=== PATIENT | female | born 1970 | race Caucasian/White ===

== ENCOUNTER 2017-08-10 18:15 | Emergency (ER) | payer OTHER ==
[2017-08-10 18:20] VITALS: BP 139/88; PULSE 97; TEMP 98.2; BMI 25.2
--- NOTE | 2017-08-10 18:58 | PDOC ---
History of Present Illness - General Chief Complaint: Pain Stated Complaint: STOMACH PAIN Time Seen by Provider: 08/10/17 18:58 Past History - Past Medical History Allergies/Adverse Reactions: Allergies Allergy/AdvReac Type Severity Reaction Status Date / Time aspirin AdvReac Intermediate Difficulty Verified 08/10/17 18:20 Breathing Home Medications: Ambulatory Orders Enalapril Maleate [Vasotec] 5 mg PO DAILY 03/07/11 Glipizide Xl [Glucotrol-Xl] 5 mg PO DAILY 03/07/11 Albuterol Sulfate Inhaler - [Ventolin Hfa *Inhaler*] 1 - 2 inh IH PRN PRN Docusate Sodium [Colace] 100 mg PO TID 09/29/11 Hydrocodone Bit/Acetaminophen [Vicodin 5-500 Tablet] 1 combo PO PRN PRN Hydrocodone Bit/Acetaminophen [Vicodin 5-500 Tablet] 1 combo PO Q4H #20 tab 28/02 Montelukast Na [Singulair] 10 mg PO DAILY 09/29/11 Ondansetron [Zofran] 4 mg PO DAILY 09/29/11 Polyethylene Glycol 3350 1 gm MC DAILY 09/29/11 Asthma: Yes COPD: No Diabetes: Yes HTN: Yes Hypercholesterolemia: Yes - Suicide/Smoking/Psychosocial Hx Smoking Status: No Smoking History: Never smoked Number of Cigarettes Smoked Daily: 0 Cigars Per Day: 0 *Physical Exam - Vital Signs Last Vital Signs Temp Pulse Resp BP Pulse Ox 98.2 F 97 H 18 139/88 99 08/10/17 18:18 08/10/17 18:18 08/10/17 18:18 08/10/17 18:18 08/10/17 18:18
[2017-08-10 19:39] LABS: BASO % 0.4 % (0-2.0); EOS % 1.7 % (0-4.5); HEMATOCRIT 40.2 % (32.4-45.2); HEMOGLOBIN 12.9 GM/dL (10.7-15.3); LYMPH % 42.2 % (8-40); MCH 25.1 pg (25.7-33.7); MCHC 32.2 g/dl (32.0-36.0); MEAN CELL VOLUME 77.8 fl (80-96); MEAN PLT VOLUME 7.9 fl (7.5-11.1); MONO % 7.4 % (3.8-10.2); NEUT % 48.3 % (42.8-82.8); PLATELET COUNT 321 K/MM3 (134-434); RBC 5.16 M/mm3 (3.60-5.2); RDW 13.9 % (11.6-15.6); WHITE BLOOD COUNT 5.9 K/mm3 (4.0-10.0)
[2017-08-10 19:40] LABS: URINE APPEARANCE CLEAR; URINE BILIRUBIN NEGATIVE (<2.0 mg/dL); URINE BLOOD NEGATIVE (NEGATIVE); URINE COLOR STRAW; URINE GLUCOSE (UA) 3+ (NEGATIVE); URINE KETONE NEGATIVE (NEGATIVE); URINE LEUK ESTERASE NEGATIVE (NEGATIVE); URINE NITRITE NEGATIVE (NEGATIVE); URINE PROTEIN NEGATIVE (NEGATIVE); URINE UROBILINOGEN NEGATIVE mg/dL (0.2-1.0)
[2017-08-10 19:59] LABS: HCG,QUALITATIVE URINE NEGATIVE
--- NOTE | 2017-08-10 20:22 | PDOC ---
History of Present Illness - General Chief Complaint: Pain Stated Complaint: STOMACH PAIN Time Seen by Provider: 08/10/17 18:58 History Source: Patient Exam Limitations: No Limitations - History of Present Illness Initial Comments: 08/10/17 21:15 Best Contact: PCP: Joyce Rowland Pmhx: Asthma, NIDDM Pshx: Total abdominal hysterectomy in 2010: Left breast biopsy 2001 Allergies:NKDA FH:None Social Hx: Cigarettes/ 0 Alcohol/ 0 Drugs/0 LMP:07/31/2017 46-year-old female presents to the emergency department complaining of epigastric pain with nausea and vomiting since yesterday. Patient states she had 2 bouts of vomiting episodes which were nonbloody and nonbilious. Patient denies fever, chills headache, dizziness, lightheadedness, neck pain/stiffness, back pain, chest pain, lower abdominal pain, urinary symptoms: Frequency/urgency /hesitancy, hematuria, flank pains There are no exacerbating or alleviating factors. Timing/Duration: momentarily Past History - Past Medical History Allergies/Adverse Reactions: Allergies Allergy/AdvReac Type Severity Reaction Status Date / Time aspirin AdvReac Intermediate Difficulty Verified 08/10/17 18:20 Breathing Home Medications: Ambulatory Orders Enalapril Maleate [Vasotec] 5 mg PO DAILY 03/07/11 Glipizide Xl [Glucotrol-Xl] 5 mg PO DAILY 03/07/11 Albuterol Sulfate Inhaler - [Ventolin Hfa *Inhaler*] 1 - 2 inh IH PRN PRN Asthma: Yes COPD: No Diabetes: Yes HTN: Yes Hypercholesterolemia: Yes - Suicide/Smoking/Psychosocial Hx Smoking Status: No Smoking History: Never smoked Number of Cigarettes Smoked Daily: 0 Cigars Per Day: 0 Review of Systems - Review of Systems Able to Perform ROS?: Yes Comments:: 08/10/17 21:20 CONSTITUTIONAL: Absent: fever, chills, diaphoresis, generalized weakness, malaise, loss of appetite HEENT: Absent: rhinorrhea, nasal congestion, throat pain, throat swelling, difficulty swallowing, mouth swelling, ear pain, eye pain, visual Changes CARDIOVASCULAR: Absent: chest pain, loss of consciousness, palpitations, irregular heart rate, peripheral edema RESPIRATORY: Absent: cough, shortness of breath, dyspnea with exertion, orthopnea, wheezing, stridor, hemoptysis GASTROINTESTINAL: +epigastric pain, nausea, vomiting Absent: abdominal distension, diarrhea, constipation, melena, hematochezia GENITOURINARY: Absent: dysuria, frequency, urgency, hesitancy, hematuria, flank pain, genital pain MUSCULOSKELETAL: Absent: myalgia, arthralgia, joint swelling SKIN: Absent: rash, itching, pallor HEMATOLOGIC/IMMUNOLOGIC: Absent: easy bleeding, easy bruising, lymphadenopathy, frequent infections ENDOCRINE: Absent: unexplained weight gain, unexplained weight loss, heat intolerance, cold intolerance NEUROLOGIC: Absent: headache, focal weakness or paresthesias, dizziness, unsteady gait, seizure, mental status changes, bladder or bowel incontinence PSYCHIATRIC: Absent: anxiety, depression, suicidal or homicidal ideation, hallucinations. Is the patient limited [place] proficient: No *Physical Exam - Vital Signs Last Vital Signs Temp Pulse Resp BP Pulse Ox 98.2 F 97 H 18 139/88 99 08/10/17 18:18 08/10/17 18:18 08/10/17 18:18 08/10/17 18:18 08/10/17 18:18 - Physical Exam Comments: 08/10/17 21:21 GENERAL: Well developed, well nourished. Awake and alert. No acute distress. HEENT: Normocephalic, atraumatic. PERRLA, EOMI. No conjunctival pallor. Sclera are non- icteric. Moist mucous membranes. Oropharynx is clear. NECK: Supple. Full ROM. No JVD. Carotid pulses 2+ and symmetric, without bruits. No thyromegaly. No lymphadenopathy. CARDIOVASCULAR: Regular rate and rhythm. No murmurs, rubs, or gallops. Distal pulses are 2+ and symmetric. PULMONARY: No evidence of respiratory distress. Lungs clear to auscultation bilaterally. No wheezing, rales or rhonchi. ABDOMINAL: +epigastric pain on deep palp Soft. Non-distended. No rebound or guarding. No organomegaly. Normoactive bowel sounds. MUSCULOSKELETAL Normal range of motion at all joints. No bony deformities or tenderness. No CVA tenderness. EXTREMITIES: No cyanosis. No clubbing. No edema. No calf tenderness. SKIN: Warm and dry. Normal capillary refill. No rashes. No jaundice. NEUROLOGICAL: Alert, awake, appropriate. Cranial nerves 2-12 intact. No deficits to light touch and temperature in face, upper extremities and lower extremities. No motor deficits in the in face, upper extremities and lower extremities. Normoreflexic in the upper and lower extremities. Normal speech. Toes are down- going bilaterally. Gait is normal without ataxia. PSYCHIATRIC: Cooperative. Good eye contact. Appropriate mood and affect. Heart Score/ECG Review - History History: Slightly suspicious - Electrocardiogram EKG: Normal - Age Age: >/= 65 - Risk Factors Risk Factors Heart Score: Yes Hx Hypertension, Yes Hx Diabetes Based on the list above the patient has:: 1-2 risk factors - Troponin Troponin: </= normal limit - Score Heart Score - Total: 3 ED Treatment Course - LABORATORY CBC & Chemistry Diagram: 08/10/17 19:15 08/10/17 19:15 - ADDITIONAL ORDERS Additional order review: Laboratory Results 08/10/17 19:15 Urine Color Straw Urine Appearance Clear Urine pH 7.0 D Ur Specific [place] 1.009 Urine Protein Negative Urine Glucose (UA) 3+ H Urine Ketones Negative Urine Blood Negative Urine Nitrite Negative Urine Bilirubin Negative Urine Urobilinogen Negative Ur Leukocyte Esterase Negative Urine HCG, Qual Negative 08/10/17 19:15 RBC 5.16 MCV 77.8 L MCHC 32.2 RDW 13.9 MPV 7.9 Neutrophils % 48.3 D Lymphocytes % 42.2 H D Monocytes % 7.4 Eosinophils % 1.7 Basophils % 0.4 *DC/Admit/Observation/Transfer Diagnosis at time of Disposition: Abdominal pain Qualifiers: Abdominal location: epigastric Qualified Code(s): R10.13 - Epigastric pain - Discharge Dispostion Disposition: HOME Condition at time of disposition: Stable Decision to Admit order: No - Referrals Referrals: Demond Mccullough MD [Primary Care Provider] - Shane Quinn MD [Staff Physician] - - Patient Instructions Printed Discharge Instructions: DI for Abdominal Pain-Adult Additional Instructions: Follow-up with the wood preparation supervisor listed on your discharge/Dr. Quinn Avoid all spicy food Return back to the ER for severe/persistent or worsening symptoms Also be sure to follow with your primary care physician - Post Discharge Activity
[2017-08-10 20:29] LABS: ALBUMIN 3.7 g/dl (3.4-5.0); AMYLASE 52 U/L (25-115); ANION GAP 7 (8-16); BLOOD UREA NITROGEN 15 mg/dL (7-18); CALCIUM 9.5 mg/dL (8.5-10.1); CHLORIDE 103 mmol/L (98-107); CO2 28 mmol/L (21-32); CREATININE 0.7 mg/dL (0.55-1.02); GLUCOSE,RANDOM 229 mg/dL (74-106); POTASSIUM 4.2 mmol/L (3.5-5.1); SGOT/AST 18 U/L (15-37); SGPT/ALT 28 U/L (12-78); SODIUM 138 mmol/L (136-145)
[2017-08-10 20:31] LABS: ALK PHOS 69 U/L (45-117); BILIRUBIN,TOTAL 0.4 mg/dL (0.2-1.0); TOT PROT 7.5 g/dl (6.4-8.2)
[2017-08-10 20:46] LABS: LIPASE 234 U/L (73-393)
[2017-08-10] MEDS ORDERED: ONDANSETRON 4 MG/2 ML VIAL IVPUSH ONE (21:04)
[2017-08-10] MEDS ORDERED: SODIUM CHLORIDE 0.9% 500 ML INFUS.BAG IV ONE (21:04)
[2017-08-10] MEDS ORDERED: MAG HYDROX/AL HYDROX/SIMETH 30 ML UNIT-DOSE CUP PO ONE (21:05)
[2017-08-10] MEDS ORDERED: FAMOTIDINE 20 MG/50 ML IVPB 20 MG/50 ML MG IVPB ONE ×2 (21:05→21:07)
[2017-08-10] MEDS ORDERED: ONDANSETRON 4 MG/2 ML VIAL ONE (21:07)
[2017-08-10] MEDS ORDERED: MAG HYDROX/AL HYDROX/SIMETH 30 ML UNIT-DOSE CUP ONE (21:26)
--- NOTE | 2017-08-11 11:49 | EKG ---
Test Reason : Blood Pressure : / mmHG Vent. Rate : 085 BPM Atrial Rate : 085 BPM P-R Int : 144 ms QRS Dur : 090 ms QT Int : 382 ms P-R-T Axes : 062 059 044 degrees QTc Int : 454 ms NORMAL SINUS RHYTHM LOW VOLTAGE QRS BORDERLINE ECG WHEN COMPARED WITH ECG OF 23-JUN-2008 10:34, NO SIGNIFICANT CHANGE WAS FOUND Confirmed by MD Dov, Hayder ([id number]) on 08/11/2017 11:49:03 AM Referred By: Confirmed By:Hayder Monae MD
== END 2017-08-10 22:45 | disposition home or self-care (01) ==
LOC: JER 18:15
PROC: 3E033GC Introduction of Other Therapeutic Substance into Peripheral Vein, Percutaneous Approach (ICD-10-PCS; principal; 2017-08-10)
PROC: 3E0337Z Introduction of Electrolytic and Water Balance Substance into Peripheral Vein, Percutaneous Approach (ICD-10-PCS; 2017-08-10)
DX: R10.13 Epigastric pain (principal); I10 Essential (primary) hypertension; E78.00 Pure hypercholesterolemia, unspecified; E11.9 Type 2 diabetes mellitus without complications; J44.9 Chronic obstructive pulmonary disease, unspecified; J45.909 Unspecified asthma, uncomplicated; Z88.6 Allergy status to analgesic agent
CPT/HCPCS: 36415; 80053; 81003; 82150; 82550; 83690; 84484; 84703; 85025; 93005; 93010; 99282-25

== ENCOUNTER 2017-08-19 10:25 | Emergency (ER) | payer OTHER ==
[2017-08-19 10:39] VITALS: BP 123/90; PULSE 89; TEMP 98; BMI 25.9
[2017-08-19] MEDS ORDERED: SODIUM CHLORIDE 0.9% 1000 ML INFUS.BAG IV ONE (11:05)
[2017-08-19] MEDS ORDERED: ONDANSETRON 4 MG/2 ML VIAL IVPUSH ONE (11:05)
[2017-08-19] MEDS ORDERED: FAMOTIDINE 20 MG/50 ML IVPB 20 MG/50 ML MG IVPB ONE (11:06)
--- NOTE | 2017-08-19 11:27 | PDOC ---
History of Present Illness - General History Source: Patient Exam Limitations: No Limitations - History of Present Illness Initial Comments: 08/19/17 11:28 The patient is a 46 year old female, with a significant past medical history of diabetes, hypertension, hyperlipidemia and asthma, who presents to the emergency department with intractable vomiting and abdominal pain for approximately 2 weeks. The patient reports her pain is epigastric and radiates into the left quadrants. She reports associated nausea and 3-4 episodes of nonbloody/nonbilious vomiting every day for 2 weeks. She denies any diarrhea, constipation, melena, or hematochezia. She denies any dysuria, hematuria, frequency, or urgency. She denies any fever, chills, cough, headache, or dizziness. She denies any chest pain, shortness of breath, diaphoresis, or palpitations. Patient reports she was evaluated by GI 2 months ago, where she was told she had a parasite. She denies any recent travel or sick contacts. Allergies: Aspirin Past Surgical History: Hysterectomy, Social History: Non smoker. No ETOH or recreational drug use. PCP: Clinic at [facility] <Juve Green - Last Filed: 08/19/17 17:22> - General History Source: Patient Exam Limitations: No Limitations <Ciera Severino - Last Filed: 08/19/17 18:05> - General Chief Complaint: Pain, Acute Stated Complaint: ABD PAIN Time Seen by Provider: 08/19/17 10:51 Past History <Juve Green - Last Filed: 08/19/17 17:22> - Past Medical History Asthma: Yes COPD: No Diabetes: Yes HTN: Yes Hypercholesterolemia: Yes - Suicide/Smoking/Psychosocial Hx Smoking Status: No Smoking History: Never smoked Number of Cigarettes Smoked Daily: 0 Cigars Per Day: 0 <Ciera Severino - Last Filed: 08/19/17 18:05> - Past Medical History Allergies/Adverse Reactions: Allergies Allergy/AdvReac Type Severity Reaction Status Date / Time aspirin AdvReac Intermediate Difficulty Verified 08/19/17 10:36 Breathing Home Medications: Ambulatory Orders Enalapril Maleate [Vasotec] 5 mg PO DAILY 03/07/11 Glipizide Xl [Glucotrol-Xl] 5 mg PO DAILY 03/07/11 Albuterol Sulfate Inhaler - [Ventolin Hfa *Inhaler*] 1 - 2 inh IH PRN PRN Ondansetron [Ondansetron Odt] 8 mg PO TID PRN #15 tab.rapdis 08/19/17 Review of Systems - Review of Systems Able to Perform ROS?: Yes Comments:: 08/19/17 11:28 GENERAL/CONSTITUTIONAL: No fever or chills. No weakness. HEAD, EYES, EARS, NOSE AND THROAT: No change in vision. No ear pain or discharge. No sore throat. CARDIOVASCULAR: No chest pain or shortness of breath. RESPIRATORY: No cough, wheezing, or hemoptysis. GASTROINTESTINAL: +Epigastric/left sided abdominal pain, nausea, vomiting. No diarrhea, constipation, melena, or hematochezia. GENITOURINARY: No dysuria, frequency, or change in urination. MUSCULOSKELETAL: No joint or muscle swelling or pain. No neck or back pain. SKIN: No rash NEUROLOGIC: No headache, vertigo, loss of consciousness, or change in strength/ sensation. ENDOCRINE: No increased thirst. No abnormal weight change. HEMATOLOGIC/LYMPHATIC: No anemia, easy bleeding, or history of blood clots. ALLERGIC/IMMUNOLOGIC: No hives or skin allergy. <PeterGiomilsy - Last Filed: 08/19/17 17:22> *Physical Exam - Vital Signs Last Vital Signs Temp Pulse Resp BP Pulse Ox 98 F 89 19 123/90 99 08/19/17 10:36 08/19/17 10:36 08/19/17 10:36 08/19/17 10:36 08/19/17 10:36 - Physical Exam Comments: 08/19/17 11:28 GENERAL: Awake, alert, and fully oriented, in no acute distress HEAD: No signs of trauma EYES: PERRLA, EOMI, sclera anicteric, conjunctiva clear ENT: Auricles normal inspection, hearing grossly normal, nares patent. Moist mucosa NECK: Normal ROM, supple, no lymphadenopathy, JVD, or masses LUNGS: Breath sounds equal, clear to auscultation bilaterally. No wheezes, and no crackles HEART: Regular rate and rhythm, normal S1 and S2, no murmurs, rubs or gallops ABDOMEN: +Epigastric/CITLALI/LLQ tenderness to palpation. Soft, normoactive bowel sounds. No guarding, no rebound. No masses EXTREMITIES: Normal range of motion, no edema. No clubbing or cyanosis. No cords, erythema, or tenderness. DP/PT pulses 2+ and symmetric. Warm and well perfused. NEUROLOGICAL: Moves all extremities. Normal speech, normal gait SKIN: Warm, Dry, normal turgor, no rashes or lesions noted. <Juve Green - Last Filed: 08/19/17 17:22> - Vital Signs Last Vital Signs Temp Pulse Resp BP Pulse Ox 98 F 89 19 123/90 99 08/19/17 10:36 08/19/17 10:36 08/19/17 10:36 08/19/17 10:36 08/19/17 10:36 <Ciera Severino - Last Filed: 08/19/17 18:05> ED Treatment Course - LABORATORY CBC & Chemistry Diagram: 08/19/17 11:10 08/19/17 11:10 - RADIOLOGY Radiograph Interpretation: 08/19/17 17:22 EXAM: CT Abdomen and Pelvis INTERPRETED BY: Dr. Perez REVIEWED BY: Dr. Severino IMPRESSION: No acute pathology identified. Significant retention of stool. No evidence of diverticulitis or colitis. Hepatomegaly with a fatty liver. Possible right adnexal cyst. Other findings as above. Clinical correlation advised. <Juve Green - Last Filed: 08/19/17 17:22> - LABORATORY CBC & Chemistry Diagram: 08/19/17 11:10 08/19/17 11:10 <Ciera Severino - Last Filed: 08/19/17 18:05> Medical Decision Making - Medical Decision Making 08/19/17 11:22 46 yo F with h/o HTN HLD, here with intractable daily vomiting x 2 weeks and abd pain. no f/c no mod factor. was seen by GI 2 months ago, told she has a parasite? or bacteria in her stomach. she also seen in ED 2 weeks ago for same. no f/c abd pain epigastric radiating to left side. no urinary complaints. no /c no sick contacts,. sees pcp at [facility] [address]. abd exam mild epigastric ttp. no rebound no guarding. differential hiatal hernia, gastritis, duodenitis, pancreatitis. colitis, diverticulitis. plan ct a/p antacid, antiemetics. fluids. 08/19/17 17:[address] with stool in colon otherwise unremarkable. pt feels better. tolerating PO. will go home with rx for zofran. has gi to followup . <Ciera Severino - Last Filed: 08/19/17 18:05> *DC/Admit/Observation/Transfer - Attestations Scribe Attestion: 08/19/17 11:28 Documentation prepared by Juve Green, acting as medical office technology instructor for Ciera Severino MD. <uJve Green - Last Filed: 08/19/17 17:22> - Discharge Dispostion Decision to Admit order: No <Ciera Severino - Last Filed: 08/19/17 18:05> Diagnosis at time of Disposition: Gastroenteritis - Discharge Dispostion Disposition: HOME Condition at time of disposition: Improved - Prescriptions Prescriptions: Ondansetron [Ondansetron Odt] 8 mg PO TID PRN #15 tab.rapdis PRN Reason: Nausea - Referrals Referrals: Demond Mccullough MD [Primary Care Provider] - Camilo Onofre DO [Staff Physician] - - Patient Instructions Printed Discharge Instructions: Viral Gastroenteritis Additional Instructions: you should drink plenty of fluids, bland food. you should follow up with your primary doctor and your fugitive detective. call to schedule. if you d o not have one you can follow up with Dr Luong see referral information for phone number. use zofran 8mg every 8 hrs as needed for nausea. - Post Discharge Activity
[2017-08-19 11:48] LABS: BASO % 0.2 % (0-2.0); EOS % 1.7 % (0-4.5); HEMOGLOBIN 14.1 GM/dL (10.7-15.3); LYMPH % 42.7 % (8-40); MCH 24.9 pg (25.7-33.7); MEAN CELL VOLUME 77.9 fl (80-96); MEAN PLT VOLUME 7.5 fl (7.5-11.1); MONO % 6.5 % (3.8-10.2); NEUT % 48.9 % (42.8-82.8); PLATELET COUNT 356 K/MM3 (134-434); RBC 5.65 M/mm3 (3.60-5.2); RDW 13.9 % (11.6-15.6); WHITE BLOOD COUNT 5.5 K/mm3 (4.0-10.0)
[2017-08-19 12:16] LABS: ALBUMIN 4.2 g/dl (3.4-5.0); ANION GAP 6 (8-16); BILIRUBIN,TOTAL 0.6 mg/dL (0.2-1.0); BLOOD UREA NITROGEN 10 mg/dL (7-18); CALCIUM 9.8 mg/dL (8.5-10.1); CHLORIDE 101 mmol/L (98-107); CO2 32 mmol/L (21-32); CREATININE 0.8 mg/dL (0.55-1.02); GLUCOSE,RANDOM 111 mg/dL (74-106); LIPASE 155 U/L (73-393); POTASSIUM 4.3 mmol/L (3.5-5.1); SGOT/AST 25 U/L (15-37); SGPT/ALT 61 U/L (12-78); SODIUM 139 mmol/L (136-145); TOT PROT 8.5 g/dl (6.4-8.2)
[2017-08-19 12:17] LABS: ALK PHOS 74 U/L (45-117)
[2017-08-19 20:40] LABS: URINE APPEARANCE CLEAR; URINE BILIRUBIN NEGATIVE (<2.0 mg/dL); URINE COLOR YELLOW; URINE GLUCOSE (UA) NEGATIVE (NEGATIVE); URINE KETONE NEGATIVE (NEGATIVE)
[2017-08-19 20:41] LABS: PH,URINE 5.5 (5.0-8.0); URINE LEUK ESTERASE NEGATIVE (NEGATIVE); URINE NITRITE NEGATIVE (NEGATIVE); URINE PROTEIN NEGATIVE (NEGATIVE); URINE UROBILINOGEN NORMAL mg/dL (0.2-1.0)
== END 2017-08-19 18:25 | disposition home or self-care (01) ==
LOC: JER 10:25
PROC: 3E033GC Introduction of Other Therapeutic Substance into Peripheral Vein, Percutaneous Approach (ICD-10-PCS; principal; 2017-08-19)
PROC: 3E033GC Introduction of Other Therapeutic Substance into Peripheral Vein, Percutaneous Approach (ICD-10-PCS; 2017-08-19)
DX: K52.9 Noninfective gastroenteritis and colitis, unspecified (principal); I10 Essential (primary) hypertension; E11.9 Type 2 diabetes mellitus without complications; Z79.84 Long term (current) use of oral hypoglycemic drugs; E78.00 Pure hypercholesterolemia, unspecified; J45.909 Unspecified asthma, uncomplicated
CPT/HCPCS: 36415; 74177-TC; 80053; 81003; 83690; 85025; 96365; 96375; 99283-25; J7030

== ENCOUNTER 2018-07-04 06:29 | Inpatient (IN) | payer OTHER ==
[2018-07-04] MEDS ORDERED: METOCLOPRAMIDE HCL INJECTION 10 MG/2 ML VIAL ONE (06:56)
[2018-07-04] MEDS ORDERED: ACETAMINOPHEN INJECTION 100 ML IVPB ONE (06:56)
--- NOTE | 2018-07-04 06:57 | PDOC ---
Attending Attestation - Resident Resident Name: Damion Kraus - ED Attending Attestation I have performed the following: I have examined & evaluated the patient, The case was reviewed & discussed with the resident, I agree w/resident's findings & plan, Exceptions are as noted - HPI HPI: 07/04/18 06:56 47F pmh DM, HTN, HLD, aneurysm here with sudden onset headache, maximum at onset , woke from sleep by the pain at around 12am. - Physicial Exam PE: 07/04/18 07:31 AOx3, NAD Agree with resident exam Normal FTN, no dysdiadokinesis LUE strength 3/5 - Medical Decision Making 07/04/18 07:35 Concern for cva vs ich, less likely mass CT b grossly normal f/u labs, cta admit
[2018-07-04 06:58] LABS: BASO % 0.5 % (0-2.0); EOS % 2.7 % (0-4.5); HEMATOCRIT 44.4 % (32.4-45.2); HEMOGLOBIN 14.7 GM/dL (10.7-15.3); LYMPH % 34.3 % (8-40); MCH 25.3 pg (25.7-33.7); MCHC 33.1 g/dl (32.0-36.0); MEAN CELL VOLUME 76.5 fl (80-96); MEAN PLT VOLUME 7.1 fl (7.5-11.1); MONO % 7.8 % (3.8-10.2); NEUT % 54.7 % (42.8-82.8); PLATELET COUNT 325 K/MM3 (134-434); RBC 5.81 M/mm3 (3.60-5.2); RDW 13.8 % (11.6-15.6); WHITE BLOOD COUNT 6.4 K/mm3 (4.0-10.0)
[2018-07-04] MEDS ORDERED: ACETAMINOPHEN 1000 MG/100 ML VIAL (NON FORMULARY) IVPB ONE (06:58)
[2018-07-04] MEDS ORDERED: METOCLOPRAMIDE HCL INJECTION 10 MG/2 ML VIAL IVPB ONE (06:58)
[2018-07-04 07:12] LABS: INR 0.96 (0.83-1.09); PROTHROMBIN TIME (PATIENT) 11.3 SEC (9.7-13.0)
[2018-07-04 07:23] LABS: ALK PHOS 78 U/L (45-117); ANION GAP 9 MMOL/L (8-16); BILIRUBIN,TOTAL 0.4 mg/dL (0.2-1); BLOOD UREA NITROGEN 15 mg/dL (7-18); CALCIUM 9.6 mg/dL (8.5-10.1); CHLORIDE 102 mmol/L (98-107); CO2 27 mmol/L (21-32); CREATININE 0.7 mg/dL (0.55-1.3); GLUCOSE,RANDOM 227 mg/dL (74-106); POTASSIUM 4.1 mmol/L (3.5-5.1); SGOT/AST 15 U/L (15-37); SGPT/ALT 23 U/L (13-61); SODIUM 137 mmol/L (136-145); TOT PROT 7.8 g/dl (6.4-8.2)
--- NOTE | 2018-07-04 07:26 | PDOC ---
History of Present Illness - General Chief Complaint: Headache Stated Complaint: PAIN,NUMBNESS Time Seen by Provider: 07/04/18 06:47 History Source: Patient Exam Limitations: No Limitations - History of Present Illness Initial Comments: 07/04/18 07:21 47F with PMH of cerebral aneurysm, diabetes, hypertension, hyperlipidemia and asthma who presents to the ER with sudden onset h/a. The patient states that she woke up at midnight with a headache. The patient states that it was gradual onset but also states that it was maximal intensity when it started. She admits to L sided facial numbness. She denies other numbness, tingling, weakness, changes in vision. She did not take her BP medications today. She denies CP, SOB , fever, chills, but admits to nausea (without vomiting) when she initially had the headache. tPA Exclusion checklist 3-4.5h - Time Elapsed Date last known well: 07/04/18 Time last known well: 00:00 Elaspsed time: 7 Day(s) and 15 Hour(s) and 57 Minutes - Thrombolytic Therapy Candidate Is patient eligible for thrombolytic therapy: No - Ineligibility reason(s) Reasons No tPA given: Outside of window - delayed arrival NIH Stroke Scale - Last Known Well Date/Time & Onset Date Last Known Well: 07/04/18 Time Last Known Well: 00:00 - Initial Evaluation Level of consciousness: Alert Ask patient the month and their age: Answers both correctly Ask patient to open & close eyes; make fist and let go: Obeys both correctly Best gaze (horizontal eye movement): Normal Visual field testing: No visual field loss Facial paresis (Show teeth/raise eyebrows/close eyes tight): Normal symmetrical movement Motor Function: Left Arm: Drift Motor Function: Right Arm: Normal (extends arm 90 (or 45) degrees for 10 seconds without drift Motor Function: Left Leg: Drift Motor Function: Right Leg: Normal (extends leg 30 degrees for 5 seconds without drift) Limb Ataxia: No ataxia Sensory(Use pinprick test arms,legs,trunk,face/side to side): Normal Best language (Describe picture, name items, read sentences): No Aphasia Dysarthria (read several words): Normal articulation Extinction and Inattention: No abnormality - Total Score NIH Stroke Scale Score: 2 Past History - Past Medical History Allergies/Adverse Reactions: Allergies Allergy/AdvReac Type Severity Reaction Status Date / Time aspirin AdvReac Intermediate Difficulty Verified 07/04/18 06:40 Breathing Home Medications: Ambulatory Orders Glipizide Xl [Glucotrol Xl -] 5 mg PO DAILY 03/07/11 Atorvastatin Ca [Lipitor] 40 mg PO HS #30 tablet 07/05/18 Atorvastatin Ca [Lipitor] 40 mg PO HS #30 tablet 07/05/18 Divalproex *ER* [Depakote *ER* -] 250 mg PO DAILY 4 Days #30 tablet. 07/05/18 Divalproex *ER* [Depakote *ER* -] 250 mg PO HS #3 tablet. 07/05/18 Divalproex *ER* [Depakote *ER* -] 500 mg PO DAILY #30 tablet. 07/05/18 Divalproex *ER* [Depakote *ER* -] 500 mg PO DAILY 30 Days #30 tablet. Enalapril Maleate [Vasotec -] 5 mg PO DAILY #30 tablet 07/05/18 Sumatriptan Succinate [Imitrex -] 50 mg PO BID #14 tablet 07/05/18 Sumatriptan Succinate [Imitrex -] 50 mg PO BID #15 tablet 07/05/18 Asthma: Yes COPD: No Diabetes: Yes HTN: Yes Hypercholesterolemia: Yes - Immunization History Immunization Up to Date: Yes - Suicide/Smoking/Psychosocial Hx Smoking Status: No Smoking History: Never smoked Have you smoked in the past 12 months: No Number of Cigarettes Smoked Daily: 0 Cigars Per Day: 0 Information on smoking cessation initiated: No Hx Alcohol Use: No Drug/Substance Use Hx: No Review of Systems - Review of Systems Able to Perform ROS?: Yes Comments:: 07/04/18 07:24 GENERAL/CONSTITUTIONAL: No fever or chills. No weakness. HEAD, EYES, EARS, NOSE AND THROAT: No change in vision. No ear pain or discharge. No sore throat. CARDIOVASCULAR: No chest pain, palpitations, or lightheadedness. RESPIRATORY: No cough, wheezing, shortness of breath, or hemoptysis. GASTROINTESTINAL: No nausea, vomiting, diarrhea, constipation, or abdominal pain. GENITOURINARY: No dysuria, frequency, hematuria, or change in urination. MUSCULOSKELETAL: No joint or muscle swelling or pain. No neck or back pain. SKIN: No rash or lesions. NEUROLOGIC: + for headache and L facial numbness. No tingling, focal weakness, loss of consciousness, or change in strength/sensation. Is the patient limited [place] proficient: No *Physical Exam - Vital Signs Last Vital Signs Temp Pulse Resp BP Pulse Ox 99.2 F 109 H 20 160/111 H 100 07/04/18 06:42 07/04/18 07:05 07/04/18 06:42 07/04/18 06:42 07/04/18 07:05 - Physical Exam Comments: 07/04/18 07:25 GENERAL: Well developed, well nourished. Awake and alert. No acute distress. HEENT: Normocephalic, atraumatic. Hearing grossly normal. Moist mucous membranes. PERRLA, EOMI. No conjunctival pallor. Sclera are non-icteric. NECK: Supple. Full ROM. No JVD. CARDIOVASCULAR: Regular rate and rhythm. No murmurs, rubs, or gallops. PULMONARY: No evidence of respiratory distress. Lungs clear to auscultation bilaterally. No wheezing, rales or rhonchi. ABDOMINAL: Soft. Non-tender. Non-distended. No rebound or guarding. MUSCULOSKELETAL: Normal range of motion at all joints. No bony deformities or tenderness. EXTREMITIES: No cyanosis. No clubbing. No edema. No calf tenderness or swelling. SKIN: Warm and dry. Normal capillary refill. No rashes. No jaundice. NEUROLOGICAL: Alert, awake, appropriate. Cranial nerves 2-12 intact. No deficits to light touch and temperature in face, upper extremities and lower extremities. 5/5 strength in R deltoids, biceps, triceps, quadriceps, hamstrings , and gastrocnemius. 3/5 strength in L deltoids, biceps, triceps, quadriceps, hamstrings, and gastrocnemius. Finger to nose normal bilaterally. Normal speech. PSYCHIATRIC: Cooperative. Good eye contact. Appropriate mood and affect. ED Treatment Course - LABORATORY CBC & Chemistry Diagram: 07/05/18 06:00 07/05/18 06:00 - ADDITIONAL ORDERS Additional order review: Laboratory Results 07/04/18 07/04/18 06:47 06:47 PT with INR 11.30 INR 0.96 Serum , Qual Negative 07/04/18 06:47 RBC 5.81 H MCV 76.5 L MCHC 33.1 RDW 13.8 MPV 7.1 L Neutrophils % 54.7 Lymphocytes % 34.3 Monocytes % 7.8 Eosinophils % 2.7 Basophils % 0.5 - RADIOLOGY Radiology Studies Ordered: Category Date Time Status HEAD CT WITHOUT CONTRAST [CT] Stat CT Scan 07/04/18 06:48 Taken - Medications Given in the ED: ED Medications Discontinued Medications Generic Name Dose Route Start Last Admin Trade Name [place]at PRN Reason Stop Dose Admin Acetaminophen 1,000 mg 07/04/18 06:58 07/04/18 07:04 Ofirmev Injection - IVPB 07/04/18 06:59 1,000 mg ONCE ONE Administration Metoclopramide HCl 10 mg 07/04/18 06:58 07/04/18 07:04 Reglan Injection - IVPB 07/04/18 06:59 10 mg ONCE ONE Administration Medical Decision Making - Medical Decision Making 07/04/18 07:29 47F with PMH of cerebral aneurysm who presents to the ER with complaints of headache and L facial numbness with weakness on her L side, concerning for CVA vs ICH. CTH d/w contracts attorney radiology who states that the pt has 9mm low density in L basal ganglia, which does not correlate to pt's symptoms. Giving tylenol and reglan for pain control. The patient is unclear on whether or not the pain was at maximal intensity when it first started. However, due to history of aneurysm , will need to r/o ICH definitively with CTA vs LP. Pt signed out to Dr. Kumar for further evaluation. *DC/Admit/Observation/Transfer Diagnosis at time of Disposition: Headache, TIA (transient ischemic attack) - Discharge Dispostion Disposition: HOME Condition at time of disposition: Improved Decision to Admit order: Yes - Referrals - Patient Instructions - Post Discharge Activity
--- NOTE | 2018-07-04 09:54 | PDOC ---
*Physical Exam - Vital Signs Last Vital Signs Temp Pulse Resp BP Pulse Ox 99.2 F 90 18 132/76 100 07/04/18 06:42 07/04/18 07:28 07/04/18 07:28 07/04/18 07:28 07/04/18 07:28 - Physical Exam General Appearance: Yes: Nourished, Appropriately Dressed. No: Apparent Distress HEENT: positive: JORGE, Normal ENT Inspection, Normal Voice Neck: positive: Supple Respiratory/Chest: positive: Lungs Clear, Normal Breath Sounds. negative: Respiratory Distress Cardiovascular: positive: S1, S2, Tachycardia Vascular Pulses: Dorsalis-Pedis (R): 2+, Doralis-Pedis (L): 2+ Gastrointestinal/Abdominal: positive: Normal Bowel Sounds, Flat, Soft. negative : Tender Rectal Exam: positive: deferred Lymphatic: negative: Adenopathy Musculoskeletal: positive: Normal Inspection. negative: CVA Tenderness Extremity: positive: Normal Capillary Refill, Normal Inspection, Normal Range of Motion Integumentary: positive: Normal Color, Dry, Warm Neurologic: positive: plant control aide II-XII NML intact, Fully Oriented, Alert, Normal Mood/ Affect, Normal Response, Numbness. negative: Motor Strength 5/5 (Left arm and leg weakness), Confused, Disoriented ED Treatment Course - LABORATORY CBC & Chemistry Diagram: 07/04/18 06:47 07/04/18 06:47 - ADDITIONAL ORDERS Additional order review: Laboratory Results 07/04/18 07/04/18 07/04/18 06:47 06:47 06:47 PT with INR 11.30 INR 0.96 Sodium 137 Potassium 4.1 Chloride 102 Carbon Dioxide 27 Anion Gap 9 BUN 15 Creatinine 0.7 Creat Clearance w eGFR 88.94 Random Glucose 227 H Calcium 9.6 Magnesium 2.0 Total Bilirubin 0.4 AST 15 ALT 23 Alkaline Phosphatase 78 Total Protein 7.8 Albumin 4.0 Serum , Qual Negative 07/04/18 06:47 RBC 5.81 H MCV 76.5 L MCHC 33.1 RDW 13.8 MPV 7.1 L Neutrophils % 54.7 Lymphocytes % 34.3 Monocytes % 7.8 Eosinophils % 2.7 Basophils % 0.5 - RADIOLOGY Radiology Studies Ordered: Category Date Time Status BRAIN CTA (STROKE) [CT] Stat CT Scan 07/04/18 07:29 Completed - Medications Given in the ED: ED Medications Discontinued Medications Generic Name Dose Route Start Last Admin Trade Name Montserrat PRN Reason Stop Dose Admin Acetaminophen 1,000 mg 07/04/18 06:58 07/04/18 07:04 Ofirmev Injection - IVPB 07/04/18 06:59 1,000 mg ONCE ONE Administration Metoclopramide HCl 10 mg 07/04/18 06:58 07/04/18 07:04 Reglan Injection - IVPB 07/04/18 06:59 10 mg ONCE ONE Administration Medical Decision Making - Medical Decision Making Patient Signed out to me from night team for SAH vs stroke Head CT negative for acute stroke. Sending labs and will then get CTA of brain. CBC shows small MCV and low abnormal RBC count. - Based on Mentzer index of (76.5/5.81 =) 13.1 this is more likely iron deficiency Patient has new onset left arm and leg weakness - Significant family history of multiple strokes and heart attacks at an early age - NIH Stroke scale 2 - Not a candidate for TPA - Will consult Neuro - Dr. Machado - and admit patient to Stroke floor *DC/Admit/Observation/Transfer Diagnosis at time of Disposition: Headache, TIA (transient ischemic attack) - Discharge Dispostion Condition at time of disposition: Guarded Decision to Admit order: Yes - Referrals Referrals: Emery Shea MD [Primary Care Provider] - - Patient Instructions - Post Discharge Activity NIH Stroke Scale - Last Known Well Date/Time & Onset Date Last Known Well: 07/03/18 Time Last Known Well: 22:00 - Initial Evaluation Level of consciousness: Alert Ask patient the month and their age: Answers both correctly Ask patient to open & close eyes; make fist and let go: Obeys both correctly Best gaze (horizontal eye movement): Normal Visual field testing: No visual field loss Facial paresis (Show teeth/raise eyebrows/close eyes tight): Normal symmetrical movement Motor Function: Left Arm: Drift Motor Function: Right Arm: Normal (extends arm 90 (or 45) degrees for 10 seconds without drift Motor Function: Left Leg: Drift Motor Function: Right Leg: Normal (extends leg 30 degrees for 5 seconds without drift) Limb Ataxia: No ataxia Sensory(Use pinprick test arms,legs,trunk,face/side to side): Normal Best language (Describe picture, name items, read sentences): No Aphasia Dysarthria (read several words): Normal articulation Extinction and Inattention: No abnormality - Total Score NIH Stroke Scale Score: 2 tPA Exclusion checklist 3-4.5h - Time Elapsed Date last known well: 07/03/18 Time last known well: 22:00 Elaspsed time: Day(s) and 12 Hour(s) and 14 Minutes - Thrombolytic Therapy Candidate Is patient eligible for thrombolytic therapy: No - Exclusion Criteria 3-4.5 hr SBP greater than 185 or DBP greater than 110mmHg despite tx: No Recent IC/spinal surgery,head trauma or stroke<3mos.: No Hx IC hemorrhage, IC neoplasm, AV malformation or aneurysm: Yes Active internal bleeding: No Blding diathesis(low plt ct, inc PTT,INR>1.7 or use of NOAC): No Symptoms suggest subarachnoid hemorrhage: Yes CT demonstrates multilobar infarct(>1/3 cerebral hemiphere): No Arterial puncture at noncompressible site in previous 7 days: No Blood glucose concentration less than 50mg/dL (2.7mmol/L): No - Relative Exclusion Criteria 3-4.5 hr Life expectancy <1 yr or severe co-morbid illness: No : No Patient/family refused: No Rapid improvement: Yes Stroke severity too mild: Yes Recent acute KS (w/in previous 3 months): No Seizure at onset with postictal residual neuro impairments: No Major surgery or serious trauma w/in previous 14 days: No Recent GI or hemorrhage (w/in previous 21 days): No - Add'l Relative Exclusion 3-4.5 hr Age > 80: No Hx of both diabetes AND prior ischemic stroke: Yes Taking an oral anticoagulant regardless of INR: No NIHSS >25: No - Ineligibility reason(s) Reasons No tPA given: Outside of window - delayed arrival, See reason(s) noted above
--- NOTE | 2018-07-04 10:35 | EKG ---
Test Reason : Blood Pressure : / mmHG Vent. Rate : 096 BPM Atrial Rate : 096 BPM P-R Int : 142 ms QRS Dur : 090 ms QT Int : 382 ms P-R-T Axes : 070 069 046 degrees QTc Int : 482 ms NORMAL SINUS RHYTHM PROLONGED QT ABNORMAL ECG Confirmed by JARON XIE MD ([id number]) on 07/04/2018 10:35:16 AM Referred By: Confirmed By:JARON XIE MD
[2018-07-04] MEDS ORDERED: ASPIRIN 81 MG CHEWABLE TABLETS PO ONE (11:56)
[2018-07-04] MEDS ORDERED: CLOPIDOGREL BISULFATE 75 MG TABLET (FP) PO ONE (12:05)
[2018-07-04] MEDS ORDERED: DIVALPROEX NA *ER* EXTEND REL 250 MG TABLET.SA PO ONE (12:17)
[2018-07-04] MEDS ORDERED: DIVALPROEX SODIUM 125 MG TABLET E.C. ONE (12:31)
--- NOTE | 2018-07-04 14:04 | CONSULT ---
Consult - text type - Consultation Consultation Note: NEUROLOGY CONSULT APPRECIATED: Events reviewed and discussed with ED Dr. Alexis; ALIN Negron. Daughters and grandson at bedside, aiding in translation. 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 Reports remote history of headaches starting in her 30's, then worsened at age 40's attributed to diagnosis of diabetes and "low blood sugar." Noted relief of headaches temporarily after STEPHANIE-BSO in 2005. Here today after 1 week of flu-like symptoms and associated holocranial/R occipital headache with photophobia, phonophobia, N/V/kinesiophobia and "dizziness." Awoke at 2 am with atypical chest pains and "tingling" in L side of face with "pounding" headache which prompted her to seek ED. Admitted to [facility] in 2011 for similar symptoms and told she had an "aneurysm." ROS: Poor sleep with recurrent awakenings due to low back pain. Received epidural Rx in past. 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 FH++ 2 daughters and 7 year old grandson with migraines and "growing pains" Head CT: (reviewed): essentially normal study Head CTA (reviewed): no evidence of aneurysm, AVM, significant stenosis or occlusion. MCV =76 MICAH: BP 160/110. 125lbs Cor reg. No bruit. Neck supple. NEURO: Mentation/Speech: Awake, alert, oriented x 3. CNII-CNXII: EOM's full without nystagmus. Full agarwal. No facial. Motor: No drift. Strength normal. Reflexes normal, except reduced tricep on L. Plantars silent. No myotonia Coordination: No FTN dystaxia. Sensation: Normal to vibration and temperature. Decreased pinprink L lateral IV/V digit. Romberg - Gait: Normal including heels, toes, tandem. Impression: Complicated Migraine (perhaps precipitated by viral syndrome) Possible L ulnar mononeuropathy Insomnia, nocturnal pains and paresthesia likely secondary to Restless Limbs Syndrome (RLS) Suggest: ID workup Given sumatriptan 6 mg sq x 1, with resolution of facial numbness and improvement of headache. Then sumatriptan 50-100 mg po prn for migraine Then start Depakote 250 mg ER po qhs x 4 days, and increase to 500 mg po qhs Check Fe++, TIBC, Ferritin as Iron deficiency may worsen RLS- related symptoms Neuro f/u as out-patient for rx for migraines and EMG studies of the arms Thank you very much, Flaco Machado MD
--- NOTE | 2018-07-04 14:29 | HP ---
CHIEF COMPLAINT: headache, left sided weakness PCP: Dr. Shea HISTORY OF PRESENT ILLNESS: Patient is a 47 year old female with a significant past medical history of cerebral aneurysm, diabetes, hypertension, hyperlipidemia and asthma who presents to the ER with sudden onset of headache that started at midnight and awoke her up from her sleep. Headache 10/10 and associated with left face and left arm weakness. She denies any other numbness, tingling, weakness, changes in vision. She denies chest pain, shortness of breath or chills. Having some nausea but no vomiting. Patient reports one week of flu like symptoms and occipital headaches with photophobia and some dizziness and chest pain that began at 0200 associated with left facial tingling with a pounding headache. She came to the ED for further evaluation. ER course was notable for: (1) negative head ct (2) (3) Recent Travel: none PAST MEDICAL HISTORY: cerebral aneurysm, diabetes, hypertension, hyperlipidemia and asthma Social History: Smoking: denies Alcohol:denies Drugs: denies Family History: Allergies aspirin Adverse Reaction (Intermediate, Verified 07/04/18 06:40) Difficulty Breathing HOME MEDICATIONS: Home Medications Medication Instructions Recorded Enalapril Maleate [Vasotec] 5 mg PO DAILY 03/07/11 Glipizide Xl [Glucotrol-Xl] 5 mg PO DAILY 03/07/11 PHYSICAL EXAMINATION Vital Signs - 24 hr 07/04/18 07/04/18 07/04/18 06:42 07:05 07:28 Temperature 99.2 F Pulse Rate 115 H 109 H Pulse Rate [ 90 Apical] Respiratory 20 18 Rate Blood Pressure 160/111 H Blood Pressure 132/76 [Right Arm] O2 Sat by Pulse 99 100 100 Oximetry (%) 07/04/18 07/04/18 11:31 14:05 Temperature 98.8 F Pulse Rate Pulse Rate [ 99 H 90 Apical] Respiratory 20 18 Rate Blood Pressure Blood Pressure 121/80 128/74 [Right Arm] O2 Sat by Pulse 98 98 Oximetry (%) GENERAL: Awake, alert, and fully oriented, in no acute distress. HEAD: Normal with no signs of trauma. EYES: Pupils equal, round and reactive to light, extraocular movements intact, sclera anicteric, conjunctiva clear. No lid lag. EARS, NOSE, THROAT: Ears normal, nares patent, oropharynx clear without exudates. Moist mucous membranes. NECK: Normal range of motion, supple without lymphadenopathy, JVD, or masses. LUNGS: Breath sounds equal, clear to auscultation bilaterally. No wheezes, and no crackles. No accessory muscle use. HEART: Regular rate and rhythm ABDOMEN: Soft, nontender, not distended, normoactive bowel sounds, no guarding, no rebound, no masses. MUSCULOSKELETAL: Normal range of motion at all joints. No bony deformities or tenderness. No CVA tenderness. UPPER EXTREMITIES: left arm 3/5, left leg 5/5, right arm 5/5, right leg 5/5 LOWER EXTREMITIES: No peripheral edema. NEUROLOGICAL: Normal speech. PSYCHIATRIC: Cooperative. Good eye contact. Appropriate mood and affect. SKIN: Warm, dry, normal turgor, no rashes or lesions noted, normal capillary refill. Laboratory Results - last 24 hr 07/04/18 07/04/18 07/04/18 06:47 06:47 06:47 WBC 6.4 RBC 5.81 H Hgb 14.7 Hct 44.4 MCV 76.5 L MCH 25.3 L MCHC 33.1 RDW 13.8 Plt Count 325 MPV 7.1 L Absolute Neuts (auto) 3.5 Neutrophils % 54.7 Lymphocytes % 34.3 Monocytes % 7.8 Eosinophils % 2.7 Basophils % 0.5 Nucleated RBC % 0 PT with INR 11.30 INR 0.96 Sodium 137 Potassium 4.1 Chloride 102 Carbon Dioxide 27 Anion Gap 9 BUN 15 Creatinine 0.7 Creat Clearance w eGFR 88.94 Random Glucose 227 H Calcium 9.6 Magnesium 2.0 Total Bilirubin 0.4 AST 15 ALT 23 Alkaline Phosphatase 78 Total Protein 7.8 Albumin 4.0 Serum , Qual 07/04/18 06:47 WBC RBC Hgb Hct MCV MCH MCHC RDW Plt Count MPV Absolute Neuts (auto) Neutrophils % Lymphocytes % Monocytes % Eosinophils % Basophils % Nucleated RBC % PT with INR INR Sodium Potassium Chloride Carbon Dioxide Anion Gap BUN Creatinine Creat Clearance w eGFR Random Glucose Calcium Magnesium Total Bilirubin AST ALT Alkaline Phosphatase Total Protein Albumin Serum , Qual Negative ASSESSMENT/PLAN: Patient is a 47 year old female with a significant past medical history of cerebral aneurysm, diabetes, hypertension, hyperlipidemia and asthma who presents to the ER with sudden onset of headache that started at midnight and awoke her up from her sleep. Headache 10/10 and associated with left face and left arm weakness. She denies any other numbness, tingling, weakness, changes in vision. She denies chest pain, shortness of breath or chills. Having some nausea but no vomiting. Patient reports one week of flu like symptoms and occipital headaches with photophobia and some dizziness and chest pain that began at 0200 associated with left facial tingling with a pounding headache. She came to the ED for further evaluation. Neuro: per neuro note, patient likely has a complicated migraine likely precipitated by viral syndrome. ID work up initiated, blood and urine cultures ordered Per neuro, patient to start: Given sumatriptan 6 mg sq x 1, with resolution of facial numbness and improvement of headache. Then sumatriptan 50-100 mg po prn for migraine Then start Depakote 250 mg ER po qhs x 4 days, and increase to 500 mg po qhs Check iron studies for iron deficiency as it may worsen symptoms Patient to follow up outpatient for migraines and EMG studies of the arms Card: Hypertension. monitor bp, start home meds HLD: check lipid panel. Endocrine: diabetes, on novolog ss fen tolerating po monitor electrolytes diabetic diet scds Visit type - Emergency Visit Emergency Visit: Yes ED Registration Date: 07/04/18 Care time: The patient presented to the Emergency Department on the above date and was hospitalized for further evaluation of their emergent condition. - New Patient This patient is new to me today: Yes Date on this admission: 07/04/18 - Critical Care Critical Care patient: No
[2018-07-04] MEDS ORDERED: SUMATRIPTAN SUCCINATE 6 MG/0.5 ML VIAL SQ ONE (14:30)
[2018-07-04] MEDS ORDERED: FLU VACCINE QUAD 60 MCG/0.5 ML (MDV 18-19) IM ONE (14:45)
[2018-07-04] MEDS ORDERED: SUMAtriptan SUCCINATE 50 MG TABLET PO PRN ×2 (14:49→16:46)
[2018-07-04] MEDS ORDERED: METOCLOPRAMIDE HCL INJECTION 10 MG/2 ML VIAL IVPUSH PRN (14:50)
--- NOTE | 2018-07-04 14:53 | CONSULT ---
Admitting History and Physical - Primary Care Physician PCP: Gerard Orr - Admission History of Present Illness: This 47 yo RH F admitted after 1 week of flu-like symptoms and associated holocranial/R occipital headache with photophobia, phonophobia, N/V/ kinesiophobia and "dizziness." Awoke at 2 am with atypical chest pains and "tingling" in L side of face with "pounding" headache At present, pt c/o pounding headache, left facial numbness, left eye feels like it's "twitching", left toes tingling History Source: Patient, Family Member Limitations to Obtaining History: No Limitations, Language Barrier - Smoking History Smoking history: Never smoked Have you smoked in the past 12 months: No Aproximately how many cigarettes per day: 0 - Alcohol/Substance Use Hx Alcohol Use: No History - Admission Reason For Visit: TIA,HEADACHE - Diagnostics CT Scan: Report Reviewed (Head CT: essentially normal study Head CTA: no evidence of aneurysm, AVM, significant stenosis or occlusion.) - General Mental Status: Alert and Oriented, Awake and Alert, Able to Follow Commands Attention: Intact Ability to Follow Directions: Excellent Head/Neck Control: WFL - Hearing Hearing: Normal Speech Evaluation - Communication Primary Language: SETS[place] Secondary Language: MALTESE (some) Communication: Yes: Within Normal Limits Oral Expression Ability: Yes: No Impairment - Speech Production Able to Make Needs Known: Yes: WNL Intelligibility: Yes: WNL - Speech Characteristics Voice Loudness: Normal Voice Pitch: Yes: Normal Voice Phonatory-based Quality: Yes: Normal Speech Pattern: Normal Speech Clarity: < 100% Nasal Resonance: Normal Articulation: Yes: Precise (slightly imprecise? sec to headache?) - Language/Auditory Comprehension Follows: Yes: 2 Stage Simple Commands - Language/Verbal Expression Able to Respond to Simple Queries: Yes: WNL Able to Communicate Wants and Needs: Yes: WNL Functional Communication Status: Yes: WNL - Memory/Perception snf Memory: Yes: WNL Short Term Memory: Yes: WNL - Swallow Evaluation/Bedside Assessment Current Nutritional Intake: Dysphagia Whole, [place] Textured Liquids Oral Secretions: Yes: WFL Dentition: Yes: Adequate Facial Symmetry at Rest: Symmetrical Facial Symmetry on Retraction: Symmetrical Facial Movement: Controlled Sensation: Reduced Left Jaw Position: Closed at Rest Against Resistance Opening: Normal Against Resistance Closing: Normal Pucker Lips: Normal Smile: Normal Lingual Movement: Normal, Symmetric Lingual Speed of Movement: Normal Lingual Movement Strgth Against Opposition: Normal Lingual Movement Characteristics: Normal Laryngeal Movement: Able to Palpate Rate of Intake: WFL Bolus Size: WFL Labial Seal: WFL Chewing: WFL (slow but efficient) Oral Prep Time: WFL A-P Transit: WFL Pocketing: None Timing of Swallow: WFL Coughing/Throat Clear: No Change in Voice: No Recommendations - Speech Evaluation, Impression/Plan Impression: Headache. c/o tingling. Pending MRI. (-) 3 oz water test. seen and followed by neuro - Dysphagia Impressions/Plan Swallowing Skills: [facility] Dysphagia Impressions: Minimal Impairment *Silent aspiration: cannot be R/O at bedside Dysphagia Treatment Plan: Small Bites, Chin Tuck/Down, Safe Rate, 1/2 tsp. at a time, OOB for meals, OOB for 1 h. after meals - Recommendations Diet Consistency: Regular (soft) Medication Administration: Whole with water Liquids: Thin Liquids
[2018-07-04 15:24] VITALS: BMI 27.1
[2018-07-04] MEDS ORDERED: PT OWN MED DRAWER 7, Y5N ONE ×3 (15:57→17:29)
[2018-07-04] MEDS ORDERED: ACETAMINOPHEN 325 MG TABLET (FP) PO PRN (16:36)
[2018-07-04] MEDS: INSULIN SLIDING SCALE (NOVOLOG) 1 VIAL SQ SCH (20:59)
[2018-07-04] MEDS ORDERED: DIVALPROEX NA *ER* EXTEND REL 250 MG TABLET.SA PO SCH (22:00)
[2018-07-05] MEDS ORDERED: BENZOCAINE/MENTH/CETYLPYRD CL 1 EACH LOZENGE MM PRN (05:53)
[2018-07-05] MEDS: INSULIN SLIDING SCALE (NOVOLOG) 1 VIAL SQ SCH ×2 (06:08→11:58)
[2018-07-05 06:26] VITALS: BP 124/76; PULSE 82; TEMP 97.2
[2018-07-05 08:16] LABS: BASO % 0.3 % (0-2.0); HEMATOCRIT 45.4 % (32.4-45.2); HEMOGLOBIN 14.9 GM/dL (10.7-15.3); LYMPH % 27.3 % (8-40); MCH 25.5 pg (25.7-33.7); MCHC 32.8 g/dl (32.0-36.0); MEAN CELL VOLUME 77.7 fl (80-96); MEAN PLT VOLUME 7.6 fl (7.5-11.1); MONO % 7.4 % (3.8-10.2); PLATELET COUNT 342 K/MM3 (134-434); RBC 5.84 M/mm3 (3.60-5.2); WHITE BLOOD COUNT 7.5 K/mm3 (4.0-10.0)
[2018-07-05 08:19] LABS: ALBUMIN 3.9 g/dl (3.4-5.0); ALK PHOS 73 U/L (45-117); ANION GAP 7 MMOL/L (8-16); BILIRUBIN,TOTAL 0.7 mg/dL (0.2-1); BLOOD UREA NITROGEN 14 mg/dL (7-18); CALCIUM 9.6 mg/dL (8.5-10.1); CHLORIDE 102 mmol/L (98-107); CHOLESTEROL 273 mg/dL (50-200); CO2 32 mmol/L (21-32); CREATININE 0.7 mg/dL (0.55-1.3); GLUCOSE,RANDOM 178 mg/dL (74-106); HDL CHOLESTEROL 51 mg/dL (40-60); MAGNESIUM 2.2 mg/dL (1.8-2.4); POTASSIUM 4.5 mmol/L (3.5-5.1); SGOT/AST 19 U/L (15-37); SGPT/ALT 27 U/L (13-61); SODIUM 141 mmol/L (136-145); TOT PROT 7.8 g/dl (6.4-8.2); TRIGLYCERIDES 177 mg/dL (0-150)
[2018-07-05] MEDS ORDERED: ENALAPRIL MALEATE 5 MG TABLET (FP) PO SCH (10:00)
--- NOTE | 2018-07-05 12:05 | DS ---
Physical Exam: SUBJECTIVE: Patient seen and examined at the bedside. in no acute distress. headache improved. not having left arm pain, no numbness or tingling. feels better. walking to bathroom, steady gait. OBJECTIVE: seen by neuro, complex migranes recommended medications called into home pharmacy patient will see Dr. Machado as an outpatient Vital Signs Period Temp Pulse Resp BP Sys/Viramontes Pulse Ox Last 24 Hr 97.2 F-98.8 F 82-99 18-20 108-160/67-89 98-98 PHYSICAL EXAM GENERAL: Awake, alert, and fully oriented, in no acute distress. HEAD: Normal with no signs of trauma. EYES: Pupils equal, round and reactive to light, extraocular movements intact, sclera anicteric, conjunctiva clear. No lid lag. EARS, NOSE, THROAT: Ears normal, nares patent, oropharynx clear without exudates. Moist mucous membranes. NECK: Normal range of motion, supple without lymphadenopathy, JVD, or masses. LUNGS: Breath sounds equal, clear to auscultation bilaterally. No wheezes, and no crackles. No accessory muscle use. HEART: Regular rate and rhythm ABDOMEN: Soft, nontender, not distended, normoactive bowel sounds, no guarding, no rebound, no masses. MUSCULOSKELETAL: Normal range of motion at all joints. No bony deformities or tenderness. No CVA tenderness. UPPER EXTREMITIES: 5/5 left arm, 5/5 right arm/ 5/5 left leg LOWER EXTREMITIES: No peripheral edema. NEUROLOGICAL: Normal speech. PSYCHIATRIC: Cooperative. Good eye contact. Appropriate mood and affect. SKIN: Warm, dry, normal turgor, no rashes or lesions noted, normal capillary refill. LABS Laboratory Results - last 24 hr 07/04/18 07/04/18 07/05/18 16:30 20:50 05:08 WBC RBC Hgb Hct MCV MCH MCHC RDW Plt Count MPV Absolute Neuts (auto) Neutrophils % Lymphocytes % Monocytes % Eosinophils % Basophils % Nucleated RBC % Sodium Potassium Chloride Carbon Dioxide Anion Gap BUN Creatinine Creat Clearance w eGFR POC Glucometer 136 168 Random Glucose Hemoglobin A1c % Calcium Magnesium Total Bilirubin AST ALT Alkaline Phosphatase Troponin I < 0.02 Total Protein Albumin Triglycerides Cholesterol Total LDL Cholesterol HDL Cholesterol Group A Strep Rapid 07/05/18 07/05/18 07/05/18 06:00 06:00 06:00 WBC 7.5 RBC 5.84 H Hgb 14.9 Hct 45.4 H MCV 77.7 L MCH 25.5 L MCHC 32.8 RDW 14.0 Plt Count 342 MPV 7.6 Absolute Neuts (auto) 4.7 Neutrophils % 63.0 Lymphocytes % 27.3 D Monocytes % 7.4 Eosinophils % 2.0 Basophils % 0.3 Nucleated RBC % 0 Sodium 141 Potassium 4.5 Chloride 102 Carbon Dioxide 32 Anion Gap 7 L BUN 14 Creatinine 0.7 Creat Clearance w eGFR 88.94 POC Glucometer Random Glucose 178 H Hemoglobin A1c % 10.9 H Calcium 9.6 Magnesium 2.2 Total Bilirubin 0.7 AST 19 ALT 27 Alkaline Phosphatase 73 Troponin I Total Protein 7.8 Albumin 3.9 Triglycerides 177 H Cholesterol 273 H Total LDL Cholesterol 193 H HDL Cholesterol 51 Group A Strep Rapid 07/05/18 07/05/18 07:20 11:55 WBC RBC Hgb Hct MCV MCH MCHC RDW Plt Count MPV Absolute Neuts (auto) Neutrophils % Lymphocytes % Monocytes % Eosinophils % Basophils % Nucleated RBC % Sodium Potassium Chloride Carbon Dioxide Anion Gap BUN Creatinine Creat Clearance w eGFR POC Glucometer 209 Random Glucose Hemoglobin A1c % Calcium Magnesium Total Bilirubin AST ALT Alkaline Phosphatase Troponin I Total Protein Albumin Triglycerides Cholesterol Total LDL Cholesterol HDL Cholesterol Group A Strep Rapid Negative HOSPITAL COURSE: Date of Admission:07/04/18 Date of Discharge: 07/05/18 ADMISSION NOTE 07/04/18. Patient is a 47 year old female with a significant past medical history of cerebral aneurysm, diabetes, hypertension, hyperlipidemia and asthma who presents to the ER with sudden onset of headache that started at midnight and awoke her up from her sleep. Headache 10/10 and associated with left face and left arm weakness. She denies any other numbness, tingling, weakness, changes in vision. She denies chest pain, shortness of breath or chills. Having some nausea but no vomiting. Patient reports one week of flu like symptoms and occipital headaches with photophobia and some dizziness and chest pain that began at 0200 associated with left facial tingling with a pounding headache. She came to the ED for further evaluation. HOSPITAL COURSE BY PROBLEM LIST: Neuro: per neuro note, patient likely has a complicated migraine likely precipitated by viral syndrome. ID work up initiated, blood and urine cultures ordered and pending. she has no signs of infection currently. she is afebrile, wbc stable. throat swab negative, throat culture pending. Per neuro, patient to start: Given sumatriptan 6 mg sq x 1, with resolution of facial numbness and improvement of headache. Then sumatriptan 50-100 mg po prn for migraine Then start Depakote 250 mg ER po qhs x 4 days, and increase to 500 mg po qhs Patient to follow up outpatient for migraines and EMG studies of the arms with neuro. Recommended iron studies, pending Card: Hypertension. stable bp, on Vasotec Hypercholesteremia. started on Lipitor 40 hs. Endocrine: diabetes. start home glipizdie. Also on Metformin at home. She will make an appointment to see Dr. Burroughs. She has been controlling her BGMs at home and states they are usually <200 pre meal. her hmga1c is elevated. She will likely need insulin but has been managing her diabetes with her PCP. She will discuss with her PCP. DISCHARGE: Discharge home with neurology and endocrinology outpatient follow up. Minutes to complete discharge: 60 Discharge Summary Reason For Visit: TIA,HEADACHE Current Active Problems Headache (Acute) TIA (transient ischemic attack) (Acute) Condition: Improved - Instructions Diet, Activity, Other Instructions: Mrs Francisco: You came into [facility] for migranes and left sided weakness. You were seen by a neurologist and here are our recommendations: Migranes Take Sumatriptan 50mg every 6-8 hours when you have a migrane headache. This medications has been called into your pharmacy Take Depakote 250mg by mouth at bedtime every day until July 07. On July 08, you will start taking Depakote 500mg by mouth at bedtime. Continue on the Depakote 500mg at bedtime until you see the neurologist. Please follow up with your primary care doctor and we recommend that you have your iron studies. Dr. Machado recommends that you see him by calling for an appointment. He will conduct tests for your left arm as well. thank you for allowing us to care for you. NEW MEDICATIONS: Sumatriptan 50-100 mg every 6-8 hours NEEDED for migraines Depakote 250 mg at 8pm on July 05 thorugh July 07 at 8pm once only at bedtime. then Depakote 500mg at 8pm once a day at bedtime. Lipitor 40mg at bedtime for High Cholesterol YOUR DIABETES REMAINS UNCONTROLLED. PLEASE FOLLOW UP WITH CRM CONSULT[employer] DR BURROUGHS. Follow ups: You will need to see your primary care doctor within 3-5 days after discharge. Call me with questions Salma Farley NP [facility] [phone] Referrals: Flaco Machado MD [Staff Physician] - 1 Week Nicola Morton MD [Staff Physician] - 1 Week Disposition: HOME - Home Medications Comprehensive Discharge Medication List: Ambulatory Orders Glipizide Xl [Glucotrol Xl -] 5 mg PO DAILY 03/07/11 Atorvastatin Ca [Lipitor] 40 mg PO HS #30 tablet 07/05/18 Divalproex *ER* [Depakote *ER* -] 250 mg PO HS #3 tablet. 07/05/18 Divalproex *ER* [Depakote *ER* -] 500 mg PO DAILY #30 tablet. 07/05/18 Enalapril Maleate [Vasotec -] 5 mg PO DAILY #30 tablet 07/05/18 Sumatriptan Succinate [Imitrex -] 50 mg PO BID #15 tablet 07/05/18 This patient is new to me today: No Emergency Visit: Yes ED Registration Date: 07/04/18 Care time: The patient presented to the Emergency Department on the above date and was hospitalized for further evaluation of their emergent condition. Critical Care patient: No - Discharge Referral Referred to [facility] No
[2018-07-05] MEDS ORDERED: ATORVASTATIN CA 40 MG TABLET (FP) PO SCH (22:00)
[2018-07-06 04:08] LABS: SERUM IRON SATURATION 24 % (15-55); TOTAL IRON BINDING CAPACITY 325 ug/dL (250-450); UIBC 246 ug/dL (131-425)
== END 2018-07-05 15:08 | disposition home or self-care (01) | DRG 723 ==
LOC: JER 06:29 → JERBED 10:00 → J4S 14:33
PROVIDERS: ADMIT Internal Medicine; ATTEND Nurse Practitioner Family
DX: B34.9 Viral infection, unspecified (principal); G43.909 Migraine, unspecified, not intractable, without status migrainosus; E11.9 Type 2 diabetes mellitus without complications; I10 Essential (primary) hypertension; E78.5 Hyperlipidemia, unspecified; D50.9 Iron deficiency anemia, unspecified; G56.22 Lesion of ulnar nerve, left upper limb; G25.81 Restless legs syndrome; G47.00 Insomnia, unspecified; H53.149 Visual discomfort, unspecified; J45.909 Unspecified asthma, uncomplicated
CPT/HCPCS: 36415; 70450-TC; 70496-TC; 80053; 80061; 82962; 83036; 83540; 83550; 83721; 83735; 84484; 84703; 85025; 85610; 87040; 87070; 87086; 87880; 90688; 93005; 93010; 99285-25; G0008; J0131

== ENCOUNTER 2019-01-15 15:31 | Emergency (ER) | payer OTHER ==
--- NOTE | 2019-01-15 15:42 | PDOC ---
Rapid Medical Evaluation Chief Complaint: Pain, Acute Time Seen by Provider: 01/15/19 15:41 Medical Evaluation: Allergies Allergy/AdvReac Type Severity Reaction Status Date / Time aspirin AdvReac Intermediate Difficulty Verified 07/04/18 06:40 Breathing 01/15/19 15:41 I have performed a brief in-person evaluation of this patient. The patient presents with a chief complaint of: abd pain Pertinent physical exam findings:stable and in NAD, non-focal I have ordered the following:labs The patient will proceed to the ED for further evaluation. Discharge Disposition - Discharge Dispostion Condition at time of disposition: Stable - Referrals - Patient Instructions - Post Discharge Activity
[2019-01-15 15:44] VITALS: BMI 24.5
--- NOTE | 2019-01-15 15:48 | PDOC ---
History of Present Illness - General Chief Complaint: Pain, Acute Stated Complaint: ABD PAIN Time Seen by Provider: 01/15/19 15:41 - History of Present Illness Initial Comments: 01/15/19 15:47 48 year old woman with a history of cerebral aneurysm, diabetes, hypertension, hyperlipidemia and asthma who presents with ROS GENERAL/CONSTITUTIONAL: No fever or chills. No weakness. HEAD, EYES, EARS, NOSE AND THROAT: No change in vision. No ear pain or discharge. No sore throat. CARDIOVASCULAR: No chest pain or shortness of breath RESPIRATORY: No cough, wheezing, or hemoptysis. GASTROINTESTINAL: No nausea, vomiting, diarrhea or constipation. GENITOURINARY: No dysuria, frequency, or change in urination. MUSCULOSKELETAL: No joint or muscle swelling or pain. No neck or back pain. SKIN: No rash NEUROLOGIC: No headache, vertigo, loss of consciousness, or change in strength/ sensation. ENDOCRINE: No increased thirst. No abnormal weight change HEMATOLOGIC/LYMPHATIC: No anemia, easy bleeding, or history of blood clots. ALLERGIC/IMMUNOLOGIC: No hives or skin allergy. PE GENERAL: Awake, alert, and fully oriented, in no acute distress HEAD: No signs of trauma, normocephalic, atraumatic EYES: PERRLA, EOMI, sclera anicteric, conjunctiva clear ENT: Auricles normal inspection, hearing grossly normal, nares patent, oropharynx clear without exudates. Moist mucosa NECK: Normal ROM, supple, no lymphadenopathy, JVD, or masses LUNGS: No distress, speaks full sentences, clear to auscultation bilaterally HEART: Regular rate and rhythm, normal S1 and S2, no murmurs, rubs or gallops, peripheral pulses normal and equal bilaterally. ABDOMEN: Soft, nontender, normoactive bowel sounds. No guarding, no rebound. No masses EXTREMITIES : Normal inspection, Normal range of motion, no edema. No clubbing or cyanosis. NEUROLOGICAL: Cranial nerves II through XII grossly intact. Normal speech, normal gait, no focal sensorimotor deficits SKIN: Warm, Dry, normal turgor, no rashes or lesions noted MDM DDX including but not limited to: W/U: - TX: - Scores: ED Course: Patient stable for discharge. Informed of all lab and imaging results. Given follow up instructions and strict return precautions. Patient expressed understanding and agree to plan.d p Mosaic Layer #: Tonya Armenta, PGY2 Emergency Medicine 01/15/19 15:49 Past History - Past Medical History Allergies/Adverse Reactions: Allergies Allergy/AdvReac Type Severity Reaction Status Date / Time aspirin AdvReac Intermediate Difficulty Verified 07/04/18 06:40 Breathing Home Medications: Ambulatory Orders Glipizide Xl [Glucotrol Xl -] 5 mg PO DAILY 03/07/11 Atorvastatin Ca [Lipitor] 40 mg PO HS #30 tablet 07/05/18 Atorvastatin Ca [Lipitor] 40 mg PO HS #30 tablet 07/05/18 Divalproex *ER* [Depakote *ER* -] 250 mg PO DAILY 4 Days #30 tablet. 07/05/18 Divalproex *ER* [Depakote *ER* -] 250 mg PO HS #3 tablet. 07/05/18 Divalproex *ER* [Depakote *ER* -] 500 mg PO DAILY #30 tablet. 07/05/18 Divalproex *ER* [Depakote *ER* -] 500 mg PO DAILY 30 Days #30 tablet. Enalapril Maleate [Vasotec -] 5 mg PO DAILY #30 tablet 07/05/18 Sumatriptan Succinate [Imitrex -] 50 mg PO BID #14 tablet 07/05/18 Sumatriptan Succinate [Imitrex -] 50 mg PO BID #15 tablet 07/05/18 Asthma: Yes COPD: No Diabetes: Yes HTN: Yes Hypercholesterolemia: Yes - Immunization History Immunization Up to Date: Yes - Psycho Social/Smoking Cessation Hx Smoking Status: No Smoking History: Never smoked Have you smoked in the past 12 months: No Number of Cigarettes Smoked Daily: 0 Cigars Per Day: 0 Information on smoking cessation initiated: No Hx Alcohol Use: No Drug/Substance Use Hx: No Hx Substance Use Treatment: No *Physical Exam - Vital Signs Last Vital Signs Temp Pulse Resp BP Pulse Ox 98.1 F 85 16 148/95 98 01/15/19 15:41 01/15/19 15:41 01/15/19 15:41 01/15/19 15:41 01/15/19 15:41 Discharge - Discharge Information Condition: Stable - Follow up/Referral - Patient Discharge Instructions - Post Discharge Activity
[2019-01-15 16:23] LABS: BASO % 0.3 % (0-2.0); EOS % 1.2 % (0-4.5); HEMATOCRIT 41.5 % (32.4-45.2); HEMOGLOBIN 13.6 GM/dL (10.7-15.3); LYMPH % 34.9 % (8-40); MCH 25.7 pg (25.7-33.7); MCHC 32.8 g/dl (32.0-36.0); MEAN CELL VOLUME 78.3 fl (80-96); MEAN PLT VOLUME 7.9 fl (7.5-11.1); MONO % 6.9 % (3.8-10.2); NEUT % 56.7 % (42.8-82.8); PLATELET COUNT 306 K/MM3 (134-434); RDW 14.6 % (11.6-15.6)
[2019-01-15 16:33] LABS: PH,URINE 8.5 (5.0-8.0); URINE APPEARANCE CLEAR; URINE BILIRUBIN NEGATIVE (NEGATIVE); URINE COLOR YELLOW; URINE GLUCOSE (UA) 3+ (NEGATIVE); URINE KETONE NEGATIVE (NEGATIVE); URINE LEUK ESTERASE NEGATIVE (NEGATIVE); URINE NITRITE NEGATIVE (NEGATIVE); URINE PROTEIN TRACE (NEGATIVE)
[2019-01-15 17:00] LABS: ALBUMIN 3.9 g/dl (3.4-5.0); BILIRUBIN,TOTAL 0.4 mg/dL (0.2-1); BLOOD UREA NITROGEN 11.5 mg/dL (7-18); CALCIUM 9.5 mg/dL (8.5-10.1); CREATININE 0.7 mg/dL (0.55-1.3); TOT PROT 7.2 g/dl (6.4-8.2)
[2019-01-15] MEDS ORDERED: PANTOPRAZOLE SODIUM 40 MG VIAL IVPUSH ONE (17:10)
[2019-01-15] MEDS ORDERED: MAG HYDROX/AL HYDROX/SIMETH 30 ML UNIT-DOSE CUP PO ONE (17:10)
[2019-01-15] MEDS ORDERED: FAMOTIDINE 20 MG/50 ML IVPB 20 MG/50 ML MG IVPB ONE ×2 (17:10→17:44)
--- NOTE | 2019-01-15 17:10 | PDOC ---
History of Present Illness - General Chief Complaint: Pain, Acute Stated Complaint: ABD PAIN Time Seen by Provider: 01/15/19 15:41 - History of Present Illness Initial Comments: 01/15/19 17:07 CHIEF COMPLAINT: abdominal pain HISTORY OF PRESENT ILLNESS: 48 yo F with hx of NIDDM and asthma, s/p hysterectomy (2005) presents to ED with abdominal pain since yesterday. Patient describes the pain as a "burning" that began after she ate. Denies fever, nausea, vomiting, diarrhea. Last BM yesterday. Denies any vaginal bleeding or discharge. Patient has not taken any medication for pain, patient states "I only drink tea for the pain." No recent travel or sick contacts. PAST MEDICAL HISTORY: Denies past medical history FAMILY HISTORY: Denies SOCIAL HISTORY: Denies tobacco, alcohol, illicit drug use. SURGICAL HISTORY: Denies ALLERGIES: aspirin REVIEW OF SYSTEMS General/Constitutional: Denies fever or chills. Denies weakness, weight change. HEENT: Denies change in vision. Denies ear pain or discharge. Denies sore throat. Cardiovascular: Denies chest pain or shortness of breath. Respiratory: Denies cough, wheezing, or hemoptysis. Gastrointestinal: Upper abdominal pain since yesterday. Denies nausea, vomiting , diarrhea or constipation. Denies rectal bleeding. Genitourinary: Denies dysuria, frequency, or change in urination. Musculoskeletal: Denies joint or muscle swelling or pain. Denies neck or back pain. Skin and breasts: Denies rash or easy bruising. Neurologic: Denies headache, vertigo, loss of consciousness, or loss of sensation. Psychiatric: Denies depression or anxiety. Endocrine: Denies increased thirst. Denies abnormal weight change. Hematologic/Lymphatic: Denies anemia, easy bleeding, or history of blood clots. Allergic/Immunologic: Denies hives or skin allergy. Denies latex allergy. PHYSICAL EXAM General Appearance: Well-appearing, appropriately dressed. No apparent distress , no intoxication. HEENT: EOMI, PERRLA, normal ENT inspection, normal voice, TMs normal, pharynx normal. No conjunctival pallor. No photophobia, scleral icterus. Neck: Supple. Trachea midline. No tenderness, rigidity, carotid bruit, stridor , lymphadenopathy, or thyromegaly. Respiratory/Chest: Lungs CTAB. No shortness of breath, chest tenderness, respiratory distress, accessory muscle use. No crackles, rales, rhonchi, stridor , wheezing, dullness Cardiovascular: RRR. S1, S2. No JVD, murmur, bradycardia, tachycardia. Vascular Pulses: Dorsalis-Pedis (R): 2+, Dorsalis-Pedis (L): 2+ Gastrointestinal/Abdominal: Mild epigastric tendenress. Normal bowel sounds. Abdomen soft, non-distended. No organomegaly, pulsatile mass, guarding, hernia , hepatomegaly, splenomegaly. Lymphatic: No adenopathy, tenderness. Musculoskeletal/Extremities: Normal inspection. FROM of all extremities, normal capillary refill. Pelvis Stable. No CVA tenderness. No tenderness to extremities, pedal edema, swelling, erythema or deformity. Integumentary: Appropriate color, dry, warm. No cyanosis, erythema, jaundice or rash Neurologic: enrober tender II-XII intact. Fully oriented, alert. Appropriate mood/affect. Motor strength 5/5. No appreciable EOM palsy, facial droop or sensory deficit. 01/15/19 17:11 01/15/19 17:55 Past History - Past Medical History Allergies/Adverse Reactions: Allergies Allergy/AdvReac Type Severity Reaction Status Date / Time aspirin AdvReac Intermediate Difficulty Verified 07/04/18 06:40 Breathing Home Medications: Ambulatory Orders Famotidine 10 mg PO BID #20 tablet 01/15/19 Glipizide 30 mg PO DAILY 01/15/19 Metformin HCl [Glucophage] 1,000 mg PO DAILY 01/15/19 Asthma: Yes COPD: No Diabetes: Yes HTN: Yes Hypercholesterolemia: Yes - Immunization History Immunization Up to Date: Yes - Psycho Social/Smoking Cessation Hx Smoking Status: No Smoking History: Never smoked Have you smoked in the past 12 months: No Number of Cigarettes Smoked Daily: 0 Cigars Per Day: 0 Information on smoking cessation initiated: No Hx Alcohol Use: No Drug/Substance Use Hx: No Hx Substance Use Treatment: No *Physical Exam - Vital Signs Last Vital Signs Temp Pulse Resp BP Pulse Ox 98.1 F 85 16 148/95 98 01/15/19 15:41 01/15/19 15:41 01/15/19 15:41 01/15/19 15:41 01/15/19 15:41 ED Treatment Course - LABORATORY CBC & Chemistry Diagram: 01/15/19 16:03 01/15/19 16:03 - ADDITIONAL ORDERS Additional order review: Laboratory Results 01/15/19 01/15/19 16:03 16:03 Sodium 138 Potassium 4.0 Chloride 103 Carbon Dioxide 30 Anion Gap 4 L BUN 11.5 Creatinine 0.7 Est GFR (CKD-EPI)AfAm 117.09 Est GFR (CKD-EPI)NonAf 101.02 Random Glucose 220 H Calcium 9.5 Total Bilirubin 0.4 AST 13 L ALT 27 Alkaline Phosphatase 65 Total Protein 7.2 Albumin 3.9 Lipase 127 Urine Color Yellow Urine Appearance Clear Urine pH 8.5 H D Ur Specific [place] 1.034 Urine Protein Trace Urine Glucose (UA) 3+ H Urine Ketones Negative Urine Blood Negative Urine Nitrite Negative Urine Bilirubin Negative Urine Urobilinogen 1.0 Ur Leukocyte Esterase Negative 01/15/19 16:03 RBC 5.30 H MCV 78.3 L MCHC 32.8 RDW 14.6 MPV 7.9 Neutrophils % 56.7 Lymphocytes % 34.9 D Monocytes % 6.9 Eosinophils % 1.2 Basophils % 0.3 Medical Decision Making - Medical Decision Making 01/15/19 17:56 48 yo F with hx of NIDDM and asthma, s/p hysterectomy (2005) presents to ED with abdominal pain since yesterday. -GI cocktail 01/15/19 18:28 Patient reassessed after administration of meds; at this time patient states she is feeling better and is ready to go home. Clinical presentation consistent with GERD, will d/c with pepcid. Advised patient to take medication as prescribed and follow up with PCP next week. Advised patient of signs and symptoms for return to ED. Patient verbalized understanding and agrees to plan. Discharge - Discharge Information Problems reviewed: Yes Clinical Impression/Diagnosis: GERD (gastroesophageal reflux disease) Qualifiers: Esophagitis presence: without esophagitis Qualified Code(s): K21.9 - Gastro- esophageal reflux disease without esophagitis Condition: Stable Disposition: HOME - Admission No - Additional Discharge Information Prescriptions: Famotidine 10 mg PO BID #20 tablet - Follow up/Referral Referrals: Osorio Leigh MD [Staff Physician] - - Patient Discharge Instructions Patient Printed Discharge Instructions: DI for Gastroesophageal Reflux Disease (GERD) - Post Discharge Activity Work/Back to School Note: Back to Work
[2019-01-15] MEDS ORDERED: PANTOPRAZOLE SODIUM 40 MG VIAL ONE (17:43)
[2019-01-15] MEDS ORDERED: MAG HYDROX/AL HYDROX/SIMETH 30 ML UNIT-DOSE CUP ONE (17:43)
[2019-01-15 18:42] VITALS: BP 139/85; PULSE 93; TEMP 97.9
== END 2019-01-15 18:43 | disposition home or self-care (01) ==
LOC: JER 15:31
PROC: 3E033GC Introduction of Other Therapeutic Substance into Peripheral Vein, Percutaneous Approach (ICD-10-PCS; principal; 2019-01-15)
PROC: 3E033GC Introduction of Other Therapeutic Substance into Peripheral Vein, Percutaneous Approach (ICD-10-PCS; 2019-01-15)
DX: K21.9 Gastro-esophageal reflux disease without esophagitis (principal); I10 Essential (primary) hypertension; E11.9 Type 2 diabetes mellitus without complications; Z79.84 Long term (current) use of oral hypoglycemic drugs; E78.00 Pure hypercholesterolemia, unspecified
CPT/HCPCS: 36415; 80053; 81003; 83690; 85025; 87086; 99282-25

== ENCOUNTER 2020-09-30 19:53 | Emergency (ER) | payer OTHER ==
[2020-09-30 20:00] VITALS: BP 111/80; PULSE 87; TEMP 97; BMI 23.6
== END 2020-09-30 23:00 | disposition home or self-care (01) ==
LOC: JER 19:53
DX: J01.90 Acute sinusitis, unspecified (principal); J34.1 Cyst and mucocele of nose and nasal sinus
CPT/HCPCS: 70450-TC; 70486-TC; 99284-25

== ENCOUNTER 2024-09-07 16:29 | Emergency (ER) | payer OTHER ==
[2024-09-07 17:12] VITALS: BP 136/90; PULSE 96; RESP 18; TEMP 98; BMI 25.9
[2024-09-07] MEDS ORDERED: ACETAMINOPHEN 500 MG TABLET (FP) ONE (19:22)
[2024-09-07] MEDS ORDERED: METHOCARBAMOL 500 MG TABLET ONE (19:22)
[2024-09-07] MEDS: ACETAMINOPHEN 500 MG TABLET (FP) PO ONE (19:24)
[2024-09-07] MEDS: METHOCARBAMOL 500 MG TABLET PO ONE (19:24)
[2024-09-07] MEDS ORDERED: LIDOCAINE 4% PATCH TP ONE (19:39)
== END 2024-09-07 20:12 | disposition home or self-care (01) ==
LOC: JERFT 16:29
DX: S46.911A Strain of unspecified muscle, fascia and tendon at shoulder and upper arm level, right arm, initial encounter (principal); M54.6 Pain in thoracic spine; X58.XXXA Exposure to other specified factors, initial encounter
CPT/HCPCS: 71045-TC-FY; 71101-TC-RT-FY; 73030-TC-RT-FY; 99284-25